=== PATIENT | male | born 1995 | race Asian ===

== ENCOUNTER 2020-09-24 13:39 | Emergency (ER) | payer OTHER, SELFPAY ==
[~2020-09-24] VITALS: Ht 162.6 cm; Wt 72.6 kg
[2020-09-24 14:13] VITALS: BP 135/64
--- NOTE | 2020-09-24 14:15 | NUR ---
COUGH AND RUNNY NOSE X1 WEEK. DENIES CONTACT WITH COVID AND DENIES GETTING TESTED. MED HX: DENIES NKA
[2020-09-24 14:40] VITALS: BP 135/64
--- NOTE | 2020-09-24 14:40 | NUR ---
Patient discharged with v/s stable. Written and verbal after care instructions given and explained. Patient verbalized understanding. Ambulatory with steady gait. All questions addressed prior to discharge. Advised to follow up with PMD.
--- NOTE | 2020-09-24 14:40 | NUR ---
NOVEL SWAB COLLECTED AND SENT TO LAB
--- NOTE | 2020-09-27 00:08 | NUR ---
Positive COVID-19 test results were received from lab. A copy of the test results were given to Infection Control.
== END 2020-09-24 14:40 | disposition home or self-care (01) ==
LOC: MED 13:39
DX: R05 Cough (principal); Z20.828 Contact with and (suspected) exposure to other viral communicable diseases
CPT/HCPCS: 99283; U0003